=== PATIENT | male | born 1955 | race Asian ===

== ENCOUNTER 2022-11-26 04:46 | Day surgery (SDC) | payer OTHER ==
[2022-11-25 09:56] VITALS: BMI 22.9
[2022-11-26 10:13] VITALS: TEMP 97.3
[2022-11-26 13:39] VITALS: BP 127/72; PULSE 76; RESP 21
== END 2022-11-26 11:29 | disposition home or self-care (01) ==
LOC: JASU-ENDO 04:46
PROVIDERS: ATTEND Student in an Organized Health Care Education/Training Program
PROC: 0DB78ZX Excision of Stomach, Pylorus, Via Natural or Artificial Opening Endoscopic, Diagnostic (ICD-10-PCS; 2022-11-26)
PROC: 0DB68ZX Excision of Stomach, Via Natural or Artificial Opening Endoscopic, Diagnostic (ICD-10-PCS; 2022-11-26)
PROC: 0DB28ZX Excision of Middle Esophagus, Via Natural or Artificial Opening Endoscopic, Diagnostic (ICD-10-PCS; 2022-11-26)
PROC: 0DB98ZX Excision of Duodenum, Via Natural or Artificial Opening Endoscopic, Diagnostic (ICD-10-PCS; principal; 2022-11-26 11:00)
DX: K20.90 Esophagitis, unspecified without bleeding (principal); B37.81 Candidal esophagitis; K29.50 Unspecified chronic gastritis without bleeding; K29.80 Duodenitis without bleeding
CPT/HCPCS: 82962; 88305-TC; 88312-TC; 88342-TC

== ENCOUNTER 2022-12-10 04:58 | Day surgery (SDC) | payer OTHER ==
[2022-12-06 16:27] VITALS: BMI 23.6
[2022-12-10 15:40] VITALS: TEMP 98
[2022-12-10 16:17] VITALS: BP 138/81; PULSE 75; RESP 19
== END 2022-12-10 16:27 | disposition home or self-care (01) ==
LOC: JASU-ENDO 04:58
PROVIDERS: ATTEND Student in an Organized Health Care Education/Training Program
PROC: 0DBP8ZX Excision of Rectum, Via Natural or Artificial Opening Endoscopic, Diagnostic (ICD-10-PCS; principal; 2022-12-10 14:30)
DX: D12.8 Benign neoplasm of rectum (principal); I10 Essential (primary) hypertension; E11.9 Type 2 diabetes mellitus without complications; Z79.84 Long term (current) use of oral hypoglycemic drugs
CPT/HCPCS: 82962; 88305-TC